=== PATIENT | male | born 1965 | race Caucasian/White ===

== ENCOUNTER → 2017-06-19 | Outpatient (CLI) | payer OTHER ==
[~2017-06-19] MED LIST: ASPI325T39 PO; GADAVIST IV PRN; LSN/10125 PO; METO50TA16 PO; PANT40TA PO
--- NOTE | 2017-06-19 11:15 | DIAGNOSTIC IMAGING REPORT ---
LUMBAR SPINE COMBINATION CLINICAL HISTORY: 52 years-old Male presenting with LUMBAR SPINE PAIN, leg numbness, previous lumbar fusion. TECHNIQUE: Multisequence, multiplanar MR imaging of the lumbar spine was performed before and after the administration of intravenous contrast. IV contrast: 14 mL of Gadavist. COMPARISON: 08/11/2015. FINDINGS: Localizer images: Unremarkable. Posterior bilateral transpedicular screw and bisi fixation of L4-S1 with laminectomy defects of L4-L5. Interbody spacer at L4-5. Interval evolution of the previously noted ovoid fluid collection along the epidural aspect of the spinal canal at the level of L5 with only ill-defined infiltration in this region remaining. Evaluation is degraded by susceptibility artifact resulting from the hardware. Vertebral body heights, alignment, and bone marrow signal intensity maintained. Regional susceptibility artifact at the operative levels results in inhomogeneous fat suppression. No convincing evidence of bony edema. Minimal desiccation of the L3-4 intervertebral disc with the remainder of the disc spaces preserved at the nonoperative levels. No significant neural foraminal narrowing. Spinal canal narrowing at L3-4 secondary to prominent epidural fat combined with minimal disc bulge, facet arthropathy, and ligamentum flavum thickening. This results in near complete effacement of CSF at this level, which is new from prior. Adequate posterior decompression at the operative levels. Spinal cord ends in good position at L1. Crowding of the cauda equina at L3-4 as mentioned. Otherwise normal appearance of the cauda equina. Postcontrast imaging demonstrates enhancement along the incision and operative bed. No focal fluid collection. No abnormal intradural enhancement. Nonspecific infiltration of the subcutaneous tissue overlying the right lumbar region posteriorly. IMPRESSION: 1. Interval evolution of the previously noted epidural fluid collection at L5 with only ill-defined infiltration remaining. No evidence of a new fluid collection. 2. Post surgical changes of L4 S1 posterior fusion with laminectomy defects at L4-5 and interbody spacer at L4-5. 3. Interval development of significant spinal canal narrowing at L3-4 secondary to prominent epidural fat combined with minimal disc bulge, facet arthropathy, and ligamentum flavum thickening. This results in near complete effacement of CSF at this level. 4. No significant neural foraminal narrowing. Electronically signed by: Juwan Prabhakar M.D. 06/19/2017 11:14 AM Dictated Date/Time: 06/19/2017 11:05 AM
== END | disposition home or self-care (01) ==
LOC: C.MRI 09:20
PROVIDERS: ATTEND Physician Assistant
DX: M54.5 Low back pain (principal); Z98.1 Arthrodesis status; M99.73 Connective tissue and disc stenosis of intervertebral foramina of lumbar region